=== PATIENT | female | born 2000 | race Caucasian/White ===

== ENCOUNTER 2023-12-04 17:29 | Emergency (ER) | payer BC, OTHER, SELFPAY ==
[2023-12-04 18:43] LABS: Bilirubin Neg (Negative); Blood, Urine Negative (Negative); Clarity Clear (Clear); Glucose, Urine (Dipstick) Normal (Negative); Ketone, Urine Negative (Negative); Leukocyte 500 (Negative); Nitrite Positive (Negative); Protein, Urine (Dipstick) Negative (Neg-Trace); Specific Gravity, Urine 1.015 (1.005-1.030); Urobilinogen Normal mg/dL (Less than 2)
[2023-12-04] MEDS ORDERED: Metoclopramide HCl 10 MG (2 mL) VIAL ONE (18:48)
[2023-12-04] MEDS ORDERED: Ketorolac Tromethamine 30 MG (1 mL) VIAL ONE (18:48)
[2023-12-04 18:52] LABS: Bacteria/HPF 4+ HPF (None Seen); CAUTI Indications for Culture Pelvic or flank pain; RBC/HPF 0-3 HPF (0-3); Squamous Epithelial 0-3 HPF (0-3); Urine Culture Reflex No No
== END 2023-12-04 19:45 | disposition home or self-care (01) ==
LOC: CSHERS 17:29
DX: G43.909 Migraine, unspecified, not intractable, without status migrainosus (principal); N39.0 Urinary tract infection, site not specified
CPT/HCPCS: 81001; 96365; 96375; J1885; J2765